=== PATIENT | male | born 1985 | race Caucasian/White ===

== ENCOUNTER 2024-10-26 08:48 | Outpatient (AMB) | payer OTHER, SELFPAY ==
--- NOTE | 2024-10-26 08:54 | AM.OFFWIN_ITS ---
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 Patient Tobacco Use Status: Never used Tobacco Allergies No Known Allergies Allergy (Unverified 10/26/24 08:56) Do you need a note to return to daycare/school/sports/work: No HPI HPI Comments History of Present Illness Details 38 y/o male patient who presents to the walk in clinic with c/o Sore- throat, cough and body aches for 3 days. [facility], [facility] Medical History (Updated 10/26/24 @ 09:39 by Natalya Maharaj NP) Acute streptococcal pharyngitis Acute pharyngitis Social History Patient Tobacco Use Status: Never used Tobacco Review of Systems Const All systems reviewed & are unremarkable except as noted in HPI and below Physical Exam Vital Signs: Last Vital Signs Temp 98.8 F 10/26/24 08:56 Pulse 105 H 10/26/24 08:56 BP 122/80 10/26/24 08:56 Pulse Ox 98 10/26/24 08:56 Oxygen Delivery Method Room Air 10/26/24 08:56 Const General: no acute distress; No comfortable Nutritional Appearance: obese Orientation/consciousness: patient oriented x3 HEENT Head: Yes normocephalic Ears: external ears normal and TM abnormal with fluid behind the TM bilateral General nose exam: Nasal discharge present Face and sinus: Yes sinuses nontender Mouth: moist mucous membranes and Abnormal oral and palatal mucosa present erythematous and white patches Throat: Yes abnormal tonsil (+3 tonsil enlargement ) Resp Effort & Inspection: normal respiratory effort and able to speak in complete sentences Auscultation: clear to auscultation bilaterally, no crackles, no rales, no rhonchi and no wheezes Cardio Heart sounds: S1 normal heart sound present and S2 normal heart sound present Neuro General: patient oriented x3 Results AMB Rapid Strep AMB Rapid Strep Positive Last Edit by LOUIS Navarro on 10/26/24 09:11 Results Reviewed Results Reviewed: Laboratory Last Values Strep Scn Rapid Clinic Positive 10/26/24 09:10 Assessment & Plan Assessment & Plan (1) Acute streptococcal pharyngitis: Code(s): J02.0 - Streptococcal pharyngitis Plan: Rapid Strep positive Ordered PCN Ordered Prednisone Orders: Orders AMB Rapid Strep Screen Today Z13.9 - Encounter for screening, unspecified Medications: New penicillin V potassium 500 mg PO TID 10 days 30 tabs 0RF J02.0 - Streptococcal pharyngitis prednisone 50 mg PO DAILY 5 days 5 tabs 0RF J02.0 - Streptococcal pharyngitis Coding Level of Care Code New Pt Level 4 (79131) Diagnoses Acute streptococcal pharyngitis J02.0 Time Spent (min) 20
[2024-10-26 08:56] VITALS: BP 122/80; PULSE 105; TEMP 37.1; O2SAT 98
== END 2024-10-26 09:43 | disposition home or self-care (01) ==
PROVIDERS: PCP Internal Medicine; Visit Provider Nurse Practitioner Family
DX: Z13.9 Encounter for screening, unspecified (principal); J02.0 Streptococcal pharyngitis

== ENCOUNTER → 2024-10-26 08:48 | Outpatient (BNVA) | payer OTHER, SELFPAY | PROVIDERS: PCP Internal Medicine; Visit Provider Nurse Practitioner Family | DX: J02.0 Streptococcal pharyngitis (principal) | CPT/HCPCS: 87880 ==